=== PATIENT | female | born 1975 | race Caucasian/White ===

== ENCOUNTER → 2022-07-01 07:52 | Outpatient (CLI) | payer OTHER, SELFPAY ==
--- NOTE | ~2022-07-01 | MR_ITS ---
EXAMINATION: MR brain/brain stem wo con DATE: 07/01/2022 09:13 INDICATION: Headache. TECHNIQUE: Magnetic resonance imaging (MRI) of the brain and brainstem was performed without intraven ous contrast. COMPARISON: None. FINDINGS: There are scattered areas of nonspecific increased T2-weighted signal intensity in the cere bral white matter. There is no intracranial hemorrhage, acute infarction, or abnormal intracranial ma ss lesion. The ventricles are normal in size. The paranasal sinuses are clear. The orbits are normal. The mastoid air cells are normal. IMPRESSION: 1. Moderate nonspecific cerebral white matter disease. The differential diagnosis includes premature chronic small vessel ischemic disease (especially if the patient has cardiovascular risk factors), de myelinating disease such as multiple sclerosis, drug abuse, vasculitis, or reactive astrocytosis (gli osis) secondary to nonspecific etiology. Reviewed, dictated and finalized at location [facility]. HANGER IMPRESSION: 1. Moderate nonspecific cerebral white matter disease. The differential diagnos is includes premature chronic small vessel ischemic disease (especially if the patient has cardiovascular risk factors), demyelinating disease such as multipl e sclerosis, drug abuse, vasculitis, or reactive astrocytosis (gliosis) seconda ry to nonspecific etiology.
--- NOTE | ~2022-07-01 | CT_ITS ---
EXAMINATION: CT abdomen pelvis w con DATE: 07/01/2022 08:57 INDICATION: Chronic pancreatitis TECHNIQUE: Computed tomography (CT) of the abdomen and pelvis was performed without and subsequently with 100 CC Omnipaque 350 intravenous contrast. Automated exposure control and iterative reconstructi on technique were employed. Exam dose: 2367.66 mGy-cm total exam DLP. COMPARISON: None. FINDINGS: The lung bases are clear. Normal heart size. No pericardial or pleural effusion. Status post cholecystectomy. No pancreatic calcification. No hepatic, splenic, pancreatic, and adrenal or renal space-occupying mass lesion is detected. No uri nary tract calculus or filling defect of the renal collecting structures, ureters or urinary bladder is noted. No evidence of appendicitis. Mild colonic diverticulosis; no evidence of diverticulitis. IUD is noted within the uterus. The urinary bladder, uterus and adnexal areas are otherwise unremarka ble. Normal caliber of the abdominal aorta. No intraperitoneal or retroperitoneal or pelvic mass lesion or adenopathy or ascites. Very small fat-containing umbilical hernia. Moderately severe degenerative disc disease at L5-S1. Mild degenerative disc disease at L4-5 with associated mild retrolisthesis. No suspicious osteolytic or osteoblastic lesions. IMPRESSION: Status post cholecystectomy IUD within uterus Pancreas appears normal. Reviewed, dictated and finalized at [facility]. Reviewed, dictated and finalized at location A. [employer] CASE [employer]IM
== END ==
PROVIDERS: PCP Nurse Practitioner; Visit Provider Family Medicine
DX: K86.1 Other chronic pancreatitis (principal); R51.9 Headache, unspecified; R93.0 Abnormal findings on diagnostic imaging of skull and head, not elsewhere classified; Z97.5 Presence of (intrauterine) contraceptive device; Z90.49 Acquired absence of other specified parts of digestive tract
CPT/HCPCS: 70551; 74177; Q9967